=== PATIENT | male | born 1995 | race Caucasian/White ===

== ENCOUNTER 2016-10-19 10:28 | Emergency (ER) | payer OTHER ==
[2016-10-19 10:33] VITALS: BP 140/101
[2016-10-19] MEDS ORDERED: Silver Nitrate/Potassium Nitr* 1 EA STICK ONE (12:24)
[2016-10-19] MEDS ORDERED: Silver Nitrate/Potassium Nitr* 1 EA STICK TOPICAL ONE (12:55)
--- NOTE | 2016-10-19 13:57 | ED ---
Skin Complaint - HPI Summary HPI Summary: Patient with a history of pilonidal recurrent cysts arrives to ED with CC of pain in the cleft of the buttocks. Describes it as pressure and sharp pain. Has been present for 1 week but now getting worse. Endorses redness, warmth and pressure around the area. Denies other significant PMHx. Prior management includes abx but no drainage. No previous history of abscess in the area. Previously used nice to manage the hair in the area, but has not done that for some time. - History of Current Complaint Chief Complaint: EDRashSkinAbscess Time Seen by Provider: 10/19/16 10:44 Stated Complaint: LOWER BACK PAIN Hx Obtained From: Patient Onset/Duration: Started Days Ago Skin Exposure Onset/Duration: Worse Since: - this morning Timing: Constant Onset Severity: Moderate Current Severity: Moderate Pain Intensity: 7 Pain Scale Used: 0-10 Numeric Skin Location: Discrete - cleft of the buttocks Character: Swelling, Pain, Redness, Raised, Painful Aggravating Symptom(s): Clothing, Touch Alleviating Symptom(s): Nothing Associated Signs & Symptoms: Tenderness - Allergy/Home Medications Allergies/Adverse Reactions: Allergies Allergy/AdvReac Type Severity Reaction Status Date / Time Sulfa Drugs Allergy Unknown UNK Verified 10/19/16 10:33 PMH/Surg Hx/FS Hx/Imm Hx Previously Healthy: Yes Endocrine/Hematology History: Denies: Hx Diabetes Cardiovascular History: Denies: Hx Hypertension, Hx Pacemaker/ICD History: Denies: Hx Renal Disease Sensory History: Denies: Hx Hearing Aid Psychiatric History: Denies: Hx Panic Disorder - Surgical History Surgery Procedure, Year, and Place: 2015 Infectious Disease History: No Infectious Disease History: Denies: Traveled Outside the [place] in Last 30 Days - Social History Occupation: Student Lives: Alone Alcohol Use: Weekly Alcohol Amount: 3 beers/ week Hx Substance Use: No Substance Use Type: Reports: None Hx Tobacco Use: No Smoking Status (MU): Never Smoked Tobacco Do You Chew or Dip Tobacco: No Have You Chewed or Dipped Tobacco in the LAST YEAR: No Have You Smoked in the Last Year: No Review of Systems Constitutional: Negative Cardiovascular: Negative Respiratory: Negative Gastrointestinal: Negative Genitourinary: Negative Musculoskeletal: Negative Positive: Other - red raised painful abscess in cleft of buttocks Neurological: Negative Psychological: Normal All Other Systems Reviewed And Are Negative: Yes Physical Exam Triage Information Reviewed: Yes Vital Signs On Initial Exam: Initial Vitals Temp Pulse Resp BP Pulse Ox 97.4 F 95 18 140/101 100 10/19/16 10:28 10/19/16 10:28 10/19/16 10:28 10/19/16 10:28 10/19/16 10:28 Vital Signs Reviewed: Yes Appearance: Positive: Well-Appearing, No Pain Distress, Well-Nourished Skin: Positive: Warm, Other - intergluteal erythematous 2X3 abscess at the upper part of the cleft of the buttocks. mildly fluctuant. Head/Face: Positive: Normal Head/Face Inspection Eyes: Positive: EOMI, Conjunctiva Clear Neck: Positive: Nontender, No Lymphadenopathy Respiratory/Lung Sounds: Positive: Breath Sounds Present Cardiovascular: Positive: Normal Musculoskeletal: Positive: Normal, Strength/ROM Intact Neurological: Positive: Normal, Speech Normal Psychiatric: Positive: Normal Procedures - Incision and Drainage Site: upper part of the toshia cleft of buttocks Anesthesia: Local Instrument(s): Scalpel Packing: Other - packing was not possible d/t size of incision Diagnostics - Vital Signs Vital Signs Temp Pulse Resp BP Pulse Ox 10/19/16 13:02 74 16 10/19/16 10:28 97.4 F 95 18 140/101 100 - Laboratory Lab Statement: Any lab studies that have been ordered have been reviewed, and results considered in the medical decision making process. Course/Dx - Course Course Of Treatment: Patient was draped. Lidocaine 1% locally used. I and D. Blood from the area. No pus or material to culture. Unable to pack d/t incision size. gauze with telfa covering area. Encouraged patient to follow up with PCP for possible surgical removal. Keflex and Metronidazole prescribed to provide appropriate anaerobe and MSSA skin [place] coverage. - Differential Diagnoses - Skin Complaint Differential Diagnoses: Abscess, Cellulitis, Other - pilonidal disease - Diagnoses Provider Diagnoses: Pilonidal abscess of cleft - Physician Notifications Instructed by Provider To: Have Pt Call For Appt. Discharge - Discharge Plan Condition: Stable Disposition: HOME Prescriptions: Cephalexin CAP* [Keflex CAP*] 500 mg PO QID #28 cap Hydrocodone-Acetaminophen [Hydrocodone/Acetaminophen 5-325 mg] 1 tab PO QID #12 tab MDD 4 metroNIDAZOLE TAB* [Flagyl 250 mg TAB*] 250 mg PO QID #28 tab MDD 4 Patient Education Materials: Pilonidal Cyst (GEN) Referrals: [facility]as [Primary Care Provider] - Additional Instructions: Follow up with your PCP. Pilonidal cyst or abscesses have a high rate of recurrence without surgical treatment Take both medications as prescribed to you. While this may treat the abscess, you may have an underlying infection which will need to be surgically treated. Shaving or using Nice around the area (after healed) will help prevent recurrence. May take tylenol or ibuprofen for discomfort.
== END 2016-10-19 13:02 | disposition home or self-care (01) ==
LOC: ED 10:28
DX: L05.01 Pilonidal cyst with abscess (principal); M54.5 Low back pain
CPT/HCPCS: 10060; 99282; A9270-GY